=== PATIENT | male | born 1960 | race Caucasian/White ===

== ENCOUNTER 2020-09-13 16:28 | Emergency (ER) | payer OTHER, MEDICARE ==
[~2020-09-13] VITALS: Ht 188 cm; Wt 77.3 kg
[2020-09-13 16:45] VITALS: BP 136/86
[2020-09-13] MEDS ORDERED: ketorolac trometh. 30mg/ml inj. IM ONE (17:20)
== END 2020-09-13 17:43 | disposition home or self-care (01) ==
LOC: ER 16:29
DX: M79.674 Pain in right toe(s) (principal); R00.0 Tachycardia, unspecified; F17.200 Nicotine dependence, unspecified, uncomplicated; Z86.73 Personal history of transient ischemic attack (TIA), and cerebral infarction without residual deficits; Z59.0 Homelessness
CPT/HCPCS: 96372; 99283; J1885

== ENCOUNTER 2020-09-22 05:13 | Emergency (ER) | payer OTHER, MEDICARE ==
[~2020-09-22] VITALS: Ht 188 cm; Wt 79.5 kg
[2020-09-22] MEDS ORDERED: acetaminophen 325mg tablet PO ONE (05:40)
[2020-09-22 05:52] VITALS: BP 156/98
== END 2020-09-22 05:56 | disposition home or self-care (01) ==
LOC: ER 05:13
DX: M79.671 Pain in right foot (principal); M21.961 Unspecified acquired deformity of right lower leg; Z86.73 Personal history of transient ischemic attack (TIA), and cerebral infarction without residual deficits; Z59.0 Homelessness
CPT/HCPCS: 99284

== ENCOUNTER 2022-07-29 16:45 | Emergency (ER) | payer SELFPAY ==
[~2022-07-29] VITALS: Ht 188 cm; Wt 77.3 kg
[2022-07-29 17:07] VITALS: BP 154/110
[2022-07-29] MEDS ORDERED: cephalexin 500mg capsule PO ONE (18:00)
[2022-07-29] MEDS ORDERED: CEPH500C2 PO (18:06)
== END 2022-07-29 18:15 | disposition home or self-care (01) ==
LOC: ER 16:46
DX: L03.011 Cellulitis of right finger (principal); F17.200 Nicotine dependence, unspecified, uncomplicated; I11.9 Hypertensive heart disease without heart failure; Z56.0 Unemployment, unspecified; Z79.2 Long term (current) use of antibiotics
CPT/HCPCS: 73140; 99283

== ENCOUNTER 2022-09-15 15:20 | Emergency (ER) | payer SELFPAY ==
[~2022-09-15] VITALS: Ht 188 cm; Wt 79.3 kg
--- NOTE | 2022-09-15 16:33 | NUR ---
FIRST CONTACT. PT AO4. RESP EVEN UNLABORED. RT HAND INDEX FINGERS SHOWS STIFFNESS AND DISCOLORATION. PER PT SMASHED IT 5 WEEKS AGO. PT IS UNABLE TO MAKE FIST. NUMBNESS REPORTED AT TIP OF DIGIT. PT ALSO STATED LEFT LOWER BACK DISCOMFORT. STATED HE TORE IT UNKNOWN ONSET. SKIN W/D/I PINK.
[2022-09-15] MEDS ORDERED: ketorolac trometh. 30mg/ml inj. IM ONE (16:40)
[2022-09-15] MEDS ORDERED: CEPH-585 PO (16:41)
[2022-09-15 17:07] VITALS: BP 133/97
== END 2022-09-15 17:10 | disposition home or self-care (01) ==
LOC: ER 15:20
DX: L98.499 Non-pressure chronic ulcer of skin of other sites with unspecified severity (principal); Z59.00 Homelessness unspecified
CPT/HCPCS: 73130; 96372; 99283; J1885

== ENCOUNTER 2022-11-08 15:28 | Emergency (ER) | payer MEDICARE, MEDICAID ==
[~2022-11-08] VITALS: Ht 188 cm; Wt 0.8 kg
[~2022-11-08 15:28] MED LIST: METO-395 PO; NO HOME MEDS
[2022-11-08 15:44] VITALS: BP 173/110
--- NOTE | 2022-11-08 16:06 | NUR ---
I have reviewed and agree with all interventions, assessments performed and documented by DU Soares.
[2022-11-08] MEDS ORDERED: apixaban 5mg tablet PO STA (16:32)
[2022-11-08] MEDS ORDERED: HYDROcodone/acetaminophen 5mg/325mg tablet PO ONE (16:35)
[2022-11-08] MEDS ORDERED: HYDR-3965 PO ×2 (16:35)
--- NOTE | 2022-11-08 18:05 | NUR ---
TELEPHONE CALL TO PATIENT AT THIS TIME PER DR MATIAS AND VARUN SILVER FOR PATIENT TO COME BACK TO ED TOMORROW MORNING FOR REVASCULARIZATION OF HAND. PATIENT VERBALIZED UNDERSTANDING OF NPO AFTER MIDNIGHT AND TO COME IN TOMORROW MORNING.
[2022-11-09] MEDS ORDERED: NYQUIL PO (15:00)
[2022-11-09] MEDS ORDERED: HYDR-3964 PO (15:00)
== END 2022-11-08 17:05 | disposition home or self-care (01) ==
LOC: ER 15:28
DX: M62.241 Nontraumatic ischemic infarction of muscle, right hand (principal); F15.20 Other stimulant dependence, uncomplicated; Z59.00 Homelessness unspecified
CPT/HCPCS: 99283

== ENCOUNTER 2022-11-09 11:17 | Inpatient (IN) | payer MEDICARE, MEDICAID ==
[~2022-11-09] VITALS: Ht 188 cm; Wt 79.5 kg
[2022-11-09] VITALS (13 sets, daily range): BP systolic 144–165; BP diastolic 91–101
[~2022-11-09 11:17] MED LIST changes: +HYDR-3965 PO
[2022-11-09] MEDS ORDERED: ondansetron/PF 4mg/2ml inj IV PRN ×2 (12:10→17:15)
[2022-11-09] MEDS ORDERED: acetaminophen 325mg tablet PO PRN ×4 (12:10→17:15)
[2022-11-09] MEDS ORDERED: morphine 2 MG/ML inj. syringe IV PRN (12:10)
[2022-11-09] MEDS ORDERED: magnesium hydroxide 30ml (MOM) UD suspension PO PRN ×2 (12:10→17:15)
[2022-11-09] MEDS ORDERED: HYDROcodone/acetaminophen 5mg/325mg tablet PO PRN (12:10)
[2022-11-09] MEDS ORDERED: mag hydrox/Alum hydrox/simeth 30ml oral suspension PO PRN (12:10)
[2022-11-09 12:52] LABS: BASOPHILS # (AUTO) 0.1 X10'3 (0-0.2); BASOPHILS % (AUTO) 1.1 % (0-1); EOSINOPHILS # (AUTO) 0.2 X10'3 (0-0.9); EOSINOPHILS % (AUTO) 2.5 % (0-6); HEMATOCRIT 40.2 % (42.0-52.0); HEMOGLOBIN 13.1 g/dl (14.0-17.9); LYMPHOCYTES # (AUTO) 1.4 X10'3 (1.1-4.8); LYMPHOCYTES % (AUTO) 18.1 % (21-51); MEAN CORPUSCULAR HEMOGLOBIN 30.1 PG (27.0-31.0); MEAN CORPUSCULAR HGB CONC 32.7 g/dL (33.0-36.5); MEAN CORPUSCULAR VOLUME 91.9 FL (78-98); MEAN PLATELET VOLUME 7.9 FL (7.4-10.4); MONOCYTES # (AUTO) 0.6 X10'3 (0-0.9); MONOCYTES % (AUTO) 7.8 % (2-12); NEUTROPHILS # (AUTO) 5.3 X10'3 (1.8-7.7); NEUTROPHILS % (AUTO) 70.5 % (42-75); PLATELET COUNT 290 X10'3 (140-440); RED BLOOD COUNT 4.37 X10'6 (4.70-6.10); RED CELL DISTRIBUTION WIDTH 14.7 % (11.5-14.5); WHITE BLOOD COUNT 7.5 X10'3 (4.5-11.0)
[2022-11-09 12:55] LABS: ALANINE AMINOTRANSFERASE 21 U/L (12-78); ALBUMIN 3.6 G/DL (3.4-5.0); ALKALINE PHOSPHATASE 83 IU/L (46-116); ANION GAP 6 (8-16); ASPARTATE AMINO TRANSFERASE 14 U/L (10-37); BILIRUBIN,TOTAL 0.4 MG/DL (0.1-1.0); BLOOD UREA NITROGEN 24 MG/DL (7-18); BUN/CREATININE RATIO 27.9 (5.4-32.0); CALCIUM 9.1 MG/DL (8.5-10.1); CHLORIDE 105 MMOL/L (99-107); CREATININE 0.86 MG/DL (0.60-1.10); GLUCOSE 100 MG/DL (70-104); POTASSIUM 4.1 MMOL/L (3.5-5.1); SODIUM 139 MMOL/L (135-145); TOTAL PROTEIN 7.2 G/DL (6.4-8.2); eGFR 90 ML/MIN
[2022-11-09] MEDS: morphine 2 MG/ML inj. syringe IV PRN ×3 (14:03→22:35)
--- NOTE | 2022-11-09 14:06 | NUR ---
Dr. Barros at bedside.
[2022-11-09] MEDS ORDERED: HYDR-3964 PO (15:00)
[2022-11-09] MEDS ORDERED: NYQUIL PO (15:00)
[2022-11-09] MEDS ORDERED: LIDOcaine 1% (10mg/ml) 2ml vial ONE (15:14)
--- NOTE | 2022-11-09 15:25 | NUR ---
pT ARRIVED FROM ed VIA [facility]
[2022-11-09] MEDS ORDERED: POTASSIUM BICARB 20meq eff tab 20 MEQ TABLET.EFF PO PRN ×2 (17:15)
[2022-11-09] MEDS: HYDROcodone/acetaminophen 10/325mg tab PO PRN ×2 (17:31→19:52)
[2022-11-09] MEDS ORDERED: LIDOcaine 2% 10ml TOPICAL JELLY (Urojet) TP ONE (18:02)
--- NOTE | 2022-11-09 18:26 | NUR ---
Problems reprioritized. Patient report given, questions answered & plan of care reviewed with LZIZIE Cash.
[2022-11-09] MEDS: tPA-cathflo 2mg/2ml IV flush 4 MG in normal saline 100ml IV soln 100 ML ICATH SCH ×2 (19:36→23:11)
[2022-11-09] MEDS: docusate sod 100mg capsule PO SCH (20:10)
[2022-11-09] MEDS: morphine 4 MG/ML inj SYRINge IV PRN (20:49)
[2022-11-10] VITALS (29 sets, daily range): BP systolic 116–165; BP diastolic 69–106
[2022-11-10] MEDS ORDERED: heparin 10,000 units/1 ML INJ IV ONE (01:15)
[2022-11-10] MEDS ORDERED: heparin 10,000 units/1 ML INJ IV PRN (01:15)
[2022-11-10] MEDS: morphine 4 MG/ML inj SYRINge IV PRN ×3 (01:28→18:52)
[2022-11-10] MEDS: heparin 25,000 UNIT/250ml bag 250 ML IV PRN ×2 (02:29→21:27)
[2022-11-10] MEDS: morphine 2 MG/ML inj. syringe IV PRN ×2 (03:47→23:37)
[2022-11-10 06:02] LABS: BASOPHILS # (AUTO) 0.1 X10'3 (0-0.2); BASOPHILS % (AUTO) 1.2 % (0-1); EOSINOPHILS # (AUTO) 0.2 X10'3 (0-0.9); EOSINOPHILS % (AUTO) 3.3 % (0-6); HEMATOCRIT 38.6 % (42.0-52.0); HEMOGLOBIN 12.9 g/dl (14.0-17.9); LYMPHOCYTES # (AUTO) 1.9 X10'3 (1.1-4.8); LYMPHOCYTES % (AUTO) 26.9 % (21-51); MEAN CORPUSCULAR HEMOGLOBIN 30.7 PG (27.0-31.0); MEAN CORPUSCULAR HGB CONC 33.5 g/dL (33.0-36.5); MEAN CORPUSCULAR VOLUME 91.7 FL (78-98); MEAN PLATELET VOLUME 8.3 FL (7.4-10.4); MONOCYTES # (AUTO) 0.6 X10'3 (0-0.9); MONOCYTES % (AUTO) 8.5 % (2-12); NEUTROPHILS # (AUTO) 4.3 X10'3 (1.8-7.7); NEUTROPHILS % (AUTO) 60.1 % (42-75); PLATELET COUNT 290 X10'3 (140-440); RED BLOOD COUNT 4.21 X10'6 (4.70-6.10); RED CELL DISTRIBUTION WIDTH 14.5 % (11.5-14.5); WHITE BLOOD COUNT 7.2 X10'3 (4.5-11.0)
[2022-11-10 06:07] LABS: ALBUMIN 3.4 G/DL (3.4-5.0); ANION GAP 5 (8-16); BLOOD UREA NITROGEN 22 MG/DL (7-18); BUN/CREATININE RATIO 26.2 (5.4-32.0); CALCIUM 8.9 MG/DL (8.5-10.1); CHLORIDE 102 MMOL/L (99-107); CREATININE 0.84 MG/DL (0.60-1.10); GLUCOSE 100 MG/DL (70-104); MAGNESIUM 2.1 MG/DL (1.5-2.4); POTASSIUM 4.1 MMOL/L (3.5-5.1); SODIUM 136 MMOL/L (135-145); TOTAL CARBON DIOXIDE 28.9 MMOL/L (24-32); eGFR > 90 ML/MIN
[2022-11-10] MEDS: tPA-cathflo 2mg/2ml IV flush 4 MG in normal saline 100ml IV soln 100 ML ICATH SCH ×2 (07:18→17:09)
--- NOTE | 2022-11-10 07:30 | NUR ---
RN spoke to IR on the phone. Informed RN that pt does have r radial pulse now. IR RN wanted to know why TPA and heparin were both running. No notes regarding an answer for her question.
[2022-11-10] MEDS: docusate sod 100mg capsule PO SCH ×2 (08:00→20:00)
[2022-11-10] MEDS: K and/or MAG REPLACEMENT MC SCH (08:00)
[2022-11-10] MEDS: HYDROcodone/acetaminophen 10/325mg tab PO PRN (08:31)
--- NOTE | 2022-11-10 11:30 | NUR ---
RN made aware of critical aptt result. APTT result drawn too early based on rate change and heparin bolus given. APTT for titration not due until 1500. RN spoke to computed tomography technician. auger operator agreed that no changes should be made to he heparin gtt and changes should be based off of the 1500 APTT. No heparin change completed.
[2022-11-10] MEDS: pantoprazole 40MG/NS 100ML BAG 100 ML IV SCH (11:51)
--- NOTE | 2022-11-10 12:35 | NUR ---
IR team to bedside in room 3011B. Papo JACKMAN obtained US imaging of right wrist/forearm. MD requesting to continue tPA drip. Primary RN aware.
[2022-11-10] MEDS ORDERED: heparin 1,000 UNITS/NS 500ml 500 ML ONE (14:19)
[2022-11-10] MEDS ORDERED: LIDOcaine 1% (10mg/ml) 2ml vial ONE (14:19)
[2022-11-10] MEDS ORDERED: fentaNYL/PF 50MCG/1 ML 2ML syringe ONE (14:19)
[2022-11-10] MEDS ORDERED: iohexol 300mg/ml 100ml inj. ONE (14:19)
[2022-11-10] MEDS ORDERED: heparin 1,000unit/ml 10ml vial 10 ML ONE (15:17)
[2022-11-10] MEDS ORDERED: nitroGLYCERIN-Tridil 50MG/D5W 250 ML IV ONE (15:26)
--- NOTE | 2022-11-10 17:46 | NUR ---
Patient off unit from [id number]
[2022-11-11] VITALS (21 sets, daily range): BP systolic 106–155; BP diastolic 62–100
[2022-11-11] MEDS: morphine 4 MG/ML inj SYRINge IV PRN ×6 (01:51→23:42)
[2022-11-11] MEDS: tPA-cathflo 2mg/2ml IV flush 4 MG in normal saline 100ml IV soln 100 ML ICATH SCH (02:31)
[2022-11-11 06:57] LABS: BASOPHILS # (AUTO) 0.1 X10'3 (0-0.2); BASOPHILS % (AUTO) 1.1 % (0-1); EOSINOPHILS # (AUTO) 0.2 X10'3 (0-0.9); EOSINOPHILS % (AUTO) 3.3 % (0-6); HEMATOCRIT 37.8 % (42.0-52.0); HEMOGLOBIN 12.5 g/dl (14.0-17.9); LYMPHOCYTES # (AUTO) 1.8 X10'3 (1.1-4.8); MEAN CORPUSCULAR HEMOGLOBIN 30.4 PG (27.0-31.0); MEAN CORPUSCULAR HGB CONC 33.1 g/dL (33.0-36.5); MEAN CORPUSCULAR VOLUME 91.7 FL (78-98); MEAN PLATELET VOLUME 7.8 FL (7.4-10.4); MONOCYTES # (AUTO) 0.7 X10'3 (0-0.9); MONOCYTES % (AUTO) 9.4 % (2-12); NEUTROPHILS # (AUTO) 4.4 X10'3 (1.8-7.7); NEUTROPHILS % (AUTO) 61.2 % (42-75); PLATELET COUNT 276 X10'3 (140-440); RED BLOOD COUNT 4.12 X10'6 (4.70-6.10); RED CELL DISTRIBUTION WIDTH 14.5 % (11.5-14.5); WHITE BLOOD COUNT 7.1 X10'3 (4.5-11.0)
[2022-11-11 07:12] LABS: ALBUMIN 3.3 G/DL (3.4-5.0); ANION GAP 5 (8-16); BLOOD UREA NITROGEN 19 MG/DL (7-18); BUN/CREATININE RATIO 20.2 (5.4-32.0); CALCIUM 8.1 MG/DL (8.5-10.1); CHLORIDE 101 MMOL/L (99-107); CREATININE 0.94 MG/DL (0.60-1.10); GLUCOSE 103 MG/DL (70-104); POTASSIUM 4.1 MMOL/L (3.5-5.1); SODIUM 135 MMOL/L (135-145); TOTAL CARBON DIOXIDE 29.5 MMOL/L (24-32); eGFR 81 ML/MIN
[2022-11-11] MEDS: docusate sod 100mg capsule PO SCH ×2 (07:54→19:08)
[2022-11-11] MEDS: pantoprazole 40MG/NS 100ML BAG 100 ML IV SCH (07:54)
[2022-11-11] MEDS: K and/or MAG REPLACEMENT MC SCH (08:00)
[2022-11-11] MEDS: HYDROcodone/acetaminophen 10/325mg tab PO PRN ×3 (08:07→21:40)
--- NOTE | 2022-11-11 09:38 | NUR ---
Pt left w/ IR team
[2022-11-11] MEDS: heparin, porcine 5000 units/ml vial SQ SCH ×2 (15:05→23:43)
--- NOTE | 2022-11-11 17:12 | NUR ---
Report called to Med surg nurse.
--- NOTE | 2022-11-11 17:35 | NUR ---
pt transferred to 4017 w belongings. Call light within reach. Nurse aid at bedside to obtain pt vitals.
--- NOTE | 2022-11-11 18:15 | NUR ---
Patient in room ORTHO 4017. I have received report from Ella and had the opportunity to ask questions and assume patient care.
--- NOTE | 2022-11-11 19:40 | NUR ---
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 He is able to lift both right/left legs off bed and the arms too. Addendum: 11/11/22 at 2210 by Laly Juan RN Amended: Links added.
[2022-11-12] MEDS: HYDROcodone/acetaminophen 10/325mg tab PO PRN ×2 (01:17→07:33)
[2022-11-12] MEDS: morphine 4 MG/ML inj SYRINge IV PRN ×3 (04:07→11:04)
--- NOTE | 2022-11-12 05:19 | NUR ---
Patient refused to have his blood drawn for the labs.
[2022-11-12 06:00] VITALS: BP 145/99
--- NOTE | 2022-11-12 06:22 | NUR ---
Problems reprioritized. Patient report given, questions answered & plan of care reviewed with Ella.
[2022-11-12] MEDS: docusate sod 100mg capsule PO SCH (07:30)
[2022-11-12] MEDS: heparin, porcine 5000 units/ml vial SQ SCH (07:30)
[2022-11-12] MEDS: K and/or MAG REPLACEMENT MC SCH (08:00)
[2022-11-12] MEDS ORDERED: APIX5TAB3 PO ×2 (09:38)
[2022-11-12] MEDS ORDERED: HYDR-3972 PO ×2 (09:38)
[2022-11-12] MEDS ORDERED: apixaban 5mg tablet PO ONE (09:40)
[2022-11-12 09:59] VITALS: BP 108/64
--- NOTE | 2022-11-12 11:58 | NUR ---
PT DISCHARGED IN STABLE CONDITION. IVS REMOVED TIPS INTACT, NO COMPLICATION. PT EDUCATED ON DISCHARGE FOLLOW UP WITH DR MCCRAY. BELONGINGS SENT WITH PT INCLUDING HOME MEDS
[2022-11-13] MEDS ORDERED: pantoprazole 40mg Tablet.DR PO SCH (07:30)
[2022-11-17] MEDS ORDERED: HYDR-3972 PO (17:48)
[2022-11-17] MEDS ORDERED: APIX5TAB3 PO (17:48)
[2022-11-18] MEDS ORDERED: OXYC-150 PO (10:00)
== END 2022-11-12 11:45 | disposition home or self-care (01) | DRG 300 ==
LOC: ER 11:17 → ED HOLD 12:11 → CICU 2S 15:05 → ORTHO 4S 11-11 17:22
PROVIDERS: ADMIT Internal Medicine; ATTEND Internal Medicine
PROC: B31H1ZZ Fluoroscopy of Right Upper Extremity Arteries using Low Osmolar Contrast (ICD-10-PCS; principal; 2022-11-10)
PROC: 3E03317 Introduction of Other Thrombolytic into Peripheral Vein, Percutaneous Approach (ICD-10-PCS; 2022-11-10)
PROC: B31H1ZZ Fluoroscopy of Right Upper Extremity Arteries using Low Osmolar Contrast (ICD-10-PCS; 2022-11-10)
PROC: B31H1ZZ Fluoroscopy of Right Upper Extremity Arteries using Low Osmolar Contrast (ICD-10-PCS; 2022-11-11)
DX: I74.2 Embolism and thrombosis of arteries of the upper extremities (principal); I69.354 Hemiplegia and hemiparesis following cerebral infarction affecting left non-dominant side; I96 Gangrene, not elsewhere classified; I70.298 Other atherosclerosis of native arteries of extremities, other extremity; M79.601 Pain in right arm; R23.0 Cyanosis; F15.10 Other stimulant abuse, uncomplicated; F17.210 Nicotine dependence, cigarettes, uncomplicated; Z59.00 Homelessness unspecified; Z79.01 Long term (current) use of anticoagulants; Z79.899 Other long term (current) drug therapy
CPT/HCPCS: 36140; 36415; 37211; 37213; 37214; 71045; 75710; 76937; 80048; 80053; 83735; 83880; 84145; 85025; 85384; 85610; 85730; 87081; 93005; 97110; 97161; 97530; 99285; A4620; A6213; A6258; A6449; C1751; C1769; C1894; C9113; G0378; J1644; J2270; J2405; J2997; J3010; J3490; Q9967

== ENCOUNTER 2022-12-07 12:09 | Emergency (ER) | payer MEDICAID, MEDICARE ==
[~2022-12-07] VITALS: Ht 188 cm; Wt 79.5 kg
[~2022-12-07 12:09] MED LIST changes: +APIX5TAB3 PO; -HYDR-3965 PO; -METO-395 PO; -NO HOME MEDS; +OXYC-150 PO
[2022-12-07 12:42] VITALS: BP 145/94
[2022-12-07] MEDS ORDERED: HYDROcodone/acetaminophen 5mg/325mg tablet PO ONE (14:10)
--- NOTE | 2022-12-07 14:57 | NUR ---
PT WAS SEEN, TREATED AND DC'D BY PROVIDER PRIOR TO [facility] [employer]
== END 2022-12-07 14:58 | disposition home or self-care (01) ==
LOC: ER 12:10
DX: I96 Gangrene, not elsewhere classified (principal); I70.90 Unspecified atherosclerosis; Z86.73 Personal history of transient ischemic attack (TIA), and cerebral infarction without residual deficits; Z79.01 Long term (current) use of anticoagulants; Z79.899 Other long term (current) drug therapy
CPT/HCPCS: 99283

== ENCOUNTER 2022-12-22 15:54 | Emergency (ER) | payer OTHER, MEDICAID ==
[~2022-12-22] VITALS: Ht 188 cm; Wt 79.5 kg
[2022-12-22] MEDS ORDERED: naloxone 0.4 mg/ml inj ONE (16:00)
[2022-12-22] MEDS ORDERED: normal saline 1000ML IV soln IVB ONE (16:05)
[2022-12-22] MEDS ORDERED: ondansetron/PF 4mg/2ml inj IV ONE (16:05)
[2022-12-22] MEDS ORDERED: naloxone 0.4 mg/ml inj IV ONE (16:05)
[2022-12-22 16:30] LABS: BASOPHILS % (AUTO) 0.3 % (0-1); EOSINOPHILS # (AUTO) 0.1 X10'3 (0-0.9); HEMATOCRIT 37.8 % (42.0-52.0); HEMOGLOBIN 12.6 g/dl (14.0-17.9); LYMPHOCYTES # (AUTO) 2.1 X10'3 (1.1-4.8); LYMPHOCYTES % (AUTO) 20.4 % (21-51); MEAN CORPUSCULAR HEMOGLOBIN 30.6 PG (27.0-31.0); MEAN CORPUSCULAR HGB CONC 33.5 g/dL (33.0-36.5); MEAN CORPUSCULAR VOLUME 91.4 FL (78-98); MEAN PLATELET VOLUME 7.6 FL (7.4-10.4); MONOCYTES # (AUTO) 0.9 X10'3 (0-0.9); MONOCYTES % (AUTO) 8.6 % (2-12); NEUTROPHILS # (AUTO) 7.2 X10'3 (1.8-7.7); NEUTROPHILS % (AUTO) 69.7 % (42-75); PLATELET COUNT 336 X10'3 (140-440); RED BLOOD COUNT 4.13 X10'6 (4.70-6.10); RED CELL DISTRIBUTION WIDTH 14.9 % (11.5-14.5); WHITE BLOOD COUNT 10.4 X10'3 (4.5-11.0)
[2022-12-22 16:42] LABS: ALANINE AMINOTRANSFERASE 11 U/L (12-78); ALBUMIN 3.3 G/DL (3.4-5.0); ALBUMIN/GLOBULIN RATIO 0.8 (1.1-1.5); ALKALINE PHOSPHATASE 96 IU/L (46-116); ANION GAP 10 (8-16); ASPARTATE AMINO TRANSFERASE 12 U/L (10-37); BILIRUBIN,TOTAL 0.2 MG/DL (0.1-1.0); BLOOD UREA NITROGEN 15 MG/DL (7-18); BUN/CREATININE RATIO 13.5 (5.4-32.0); CHLORIDE 100 MMOL/L (99-107); CREATININE 1.11 MG/DL (0.60-1.10); GLUCOSE 229 MG/DL (70-104); SODIUM 135 MMOL/L (135-145); TOTAL CARBON DIOXIDE 25.4 MMOL/L (24-32); TOTAL PROTEIN 7.4 G/DL (6.4-8.2); eGFR 67 ML/MIN
[2022-12-22] MEDS ORDERED: NALO4SPR BOTHNARES (17:56)
[2022-12-22 18:12] VITALS: BP 125/91
== END 2022-12-22 18:04 | disposition left against medical advice (07) ==
LOC: ER 15:55
DX: T40.411A Poisoning by fentanyl or fentanyl analogs, accidental (unintentional), initial encounter (principal); R11.10 Vomiting, unspecified; Y92.89 Other specified places as the place of occurrence of the external cause
CPT/HCPCS: 36415; 80053; 85025; 93005; 96361; 96374; 99291; J2310; J2405; J7030; 99283; 99284

== ENCOUNTER 2022-12-27 14:20 | Emergency (ER) | payer OTHER, MEDICAID ==
[~2022-12-27] VITALS: Ht 190.5 cm; Wt 79.5 kg
[~2022-12-27 14:20] MED LIST changes: +NALO4SPR BOTHNARES
[2022-12-27 14:34] VITALS: BP 158/103
[2022-12-27] MEDS ORDERED: acetaminophen 325mg tablet PO ONE (15:10)
== END 2022-12-27 17:11 | disposition home or self-care (01) ==
LOC: ER 14:20
DX: I99.8 Other disorder of circulatory system (principal); F15.20 Other stimulant dependence, uncomplicated; Z59.00 Homelessness unspecified
CPT/HCPCS: 71045; 73130; 99284

== ENCOUNTER 2023-12-14 22:52 | Emergency (ER) | payer OTHER, MEDICARE ==
[~2023-12-14] VITALS: Ht 188 cm; Wt 68.0 kg
[2023-12-14 22:57] VITALS: TEMP 98.2
[2023-12-14] MEDS: dexamethasone sod phosphate 10mg/ml inj IV STA (23:20)
[2023-12-14 23:22] LABS: BASOPHILS # (AUTO) 0.1 X10'3 (0-0.2); BASOPHILS % (AUTO) 0.5 % (0-1); EOSINOPHILS # (AUTO) 0.2 X10'3 (0-0.9); EOSINOPHILS % (AUTO) 1.9 % (0-6); HEMATOCRIT 33.3 % (42.0-52.0); LYMPHOCYTES # (AUTO) 1.6 X10'3 (1.1-4.8); LYMPHOCYTES % (AUTO) 14.2 % (21-51); MEAN CORPUSCULAR HEMOGLOBIN 28.6 PG (27.0-31.0); MEAN CORPUSCULAR HGB CONC 33.1 g/dL (33.0-36.5); MEAN CORPUSCULAR VOLUME 86.3 FL (78-98); MEAN PLATELET VOLUME 7.4 FL (7.4-10.4); MONOCYTES % (AUTO) 8.5 % (2-12); NEUTROPHILS # (AUTO) 8.5 X10'3 (1.8-7.7); NEUTROPHILS % (AUTO) 74.9 % (42-75); PLATELET COUNT 250 X10'3 (140-440); RED BLOOD COUNT 3.86 X10'6 (4.70-6.10); WHITE BLOOD COUNT 11.4 X10'3 (4.5-11.0)
[2023-12-14 23:33] LABS: PROTHROMBIN TIME 10.9 SECONDS (9.0-12.0)
[2023-12-14 23:42] LABS: ALBUMIN 3.2 G/DL (3.4-5.0); ANION GAP 6 (8-16); BLOOD UREA NITROGEN 26 MG/DL (7-18); BUN/CREATININE RATIO 25.5 (10.0-20.0); CALCIUM 8.6 MG/DL (8.5-10.1); CHLORIDE 110 MMOL/L (99-107); CREATININE 1.02 MG/DL (0.60-1.10); GLUCOSE 106 MG/DL (70-104); MAGNESIUM 1.8 MG/DL (1.5-2.4); POTASSIUM 4.2 MMOL/L (3.5-5.1); PRO BRAIN NATRIURETIC PEPTIDE 154 PG/ML (0-125); SODIUM 147 MMOL/L (135-145); TOTAL CARBON DIOXIDE 30.7 MMOL/L (24-32); eCRCL 70 ML/MIN; eGFR 74 ML/MIN
[2023-12-15] MEDS ORDERED: iohexol 300mg/ml 100ml inj. ONE (00:26)
[2023-12-15] MEDS: normal saline 1000ml 1,000 ML IV ONE (00:36)
[2023-12-15 08:59] VITALS: BP 130/85; PULSE 74; RESP 16; O2SAT 98
== END 2023-12-15 09:00 | disposition left against medical advice (07) ==
LOC: ER 22:53
DX: R22.1 Localized swelling, mass and lump, neck (principal); F15.10 Other stimulant abuse, uncomplicated; Z79.899 Other long term (current) drug therapy
CPT/HCPCS: 36415; 70491; 71045; 71260; 80048; 83735; 83880; 84145; 85025; 85610; 93005; 96374; 99285; J1100; J3490; J7030; Q9967

== ENCOUNTER 2024-05-01 11:25 | Emergency (ER) | payer OTHER, MEDICARE, MEDICAID ==
[~2024-05-01] VITALS: Ht 188 cm; Wt 64.0 kg
[~2024-05-01 11:25] MED LIST changes: -APIX5TAB3 PO; -NALO4SPR BOTHNARES; +NO HOME MEDS; -OXYC-150 PO
[2024-05-01 13:47] LABS: BASOPHILS % (AUTO) 0.2 % (0-1); EOSINOPHILS # (AUTO) 0.2 X10'3 (0-0.9); EOSINOPHILS % (AUTO) 1.7 % (0-6); HEMATOCRIT 32.4 % (42.0-52.0); HEMOGLOBIN 10.2 g/dl (14.0-17.9); LYMPHOCYTES # (AUTO) 1.1 X10'3 (1.1-4.8); LYMPHOCYTES % (AUTO) 10.3 % (21-51); MEAN CORPUSCULAR HEMOGLOBIN 27.3 PG (27.0-31.0); MEAN CORPUSCULAR HGB CONC 31.4 g/dL (33.0-36.5); MEAN CORPUSCULAR VOLUME 86.9 FL (78-98); MEAN PLATELET VOLUME 8.1 FL (7.4-10.4); MONOCYTES # (AUTO) 0.7 X10'3 (0-0.9); MONOCYTES % (AUTO) 6.6 % (2-12); NEUTROPHILS % (AUTO) 81.2 % (42-75); PLATELET COUNT 347 X10'3 (140-440); RED BLOOD COUNT 3.73 X10'6 (4.70-6.10); RED CELL DISTRIBUTION WIDTH 16.9 % (11.5-14.5); WHITE BLOOD COUNT 11.1 X10'3 (4.5-11.0)
[2024-05-01 13:58] LABS: ALBUMIN 2.5 G/DL (3.4-5.0); ANION GAP 6 (8-16); BLOOD UREA NITROGEN 21 MG/DL (7-18); BUN/CREATININE RATIO 24.7 (10.0-20.0); CALCIUM 8.6 MG/DL (8.5-10.1); CHLORIDE 103 MMOL/L (99-107); CREATININE 0.85 MG/DL (0.60-1.10); GLUCOSE 134 MG/DL (70-104); POTASSIUM 3.7 MMOL/L (3.5-5.1); SODIUM 136 MMOL/L (135-145); TOTAL CARBON DIOXIDE 27.3 MMOL/L (24-32); eCRCL 79 ML/MIN; eGFR > 90 ML/MIN
[2024-05-01] MEDS ORDERED: LIDOcaine 2% Viscous 15ml cup MM SCH (15:00)
[2024-05-01] MEDS: LIDOcaine 2% Viscous 15ml cup MM ONE (15:25)
[2024-05-01 16:05] VITALS: BP 108/74; PULSE 84; RESP 16; TEMP 98.5; O2SAT 96
== END 2024-05-01 16:07 | disposition home or self-care (01) ==
LOC: ER 11:26
DX: J02.9 Acute pharyngitis, unspecified (principal); R59.0 Localized enlarged lymph nodes; E86.0 Dehydration; R05.9 Cough, unspecified; I63.9 Cerebral infarction, unspecified; G45.9 Transient cerebral ischemic attack, unspecified; F15.90 Other stimulant use, unspecified, uncomplicated
CPT/HCPCS: 36415; 71045; 80048; 83605; 84145; 85025; 87040; 99284

== ENCOUNTER 2024-10-14 22:46 | Emergency (ER) | payer OTHER, MEDICARE, MEDICAID ==
[~2024-10-14] VITALS: Ht 188 cm; Wt 61.4 kg
[2024-10-14 23:17] LABS: BASOPHILS % (AUTO) 0.6 % (0-1); EOSINOPHILS % (AUTO) 0.6 % (0-6); HEMATOCRIT 29.4 % (42.0-52.0); LYMPHOCYTES # (AUTO) 0.9 X10'3 (1.1-4.8); LYMPHOCYTES % (AUTO) 11.2 % (21-51); MEAN CORPUSCULAR HEMOGLOBIN 30.4 PG (27.0-31.0); MEAN CORPUSCULAR VOLUME 89.5 FL (78-98); MEAN PLATELET VOLUME 6.7 FL (7.4-10.4); MONOCYTES # (AUTO) 0.5 X10'3 (0-0.9); MONOCYTES % (AUTO) 5.9 % (2-12); NEUTROPHILS # (AUTO) 6.6 X10'3 (1.8-7.7); NEUTROPHILS % (AUTO) 81.7 % (42-75); PLATELET COUNT 470 X10'3 (140-440); RED BLOOD COUNT 3.29 X10'6 (4.70-6.10); WHITE BLOOD COUNT 8.1 X10'3 (4.5-11.0)
[2024-10-14 23:40] LABS: ALBUMIN 3.2 G/DL (3.4-5.0); ANION GAP 2 (8-16); ANISOCYTOSIS 2+; BLOOD UREA NITROGEN 25 MG/DL (7-18); BUN/CREATININE RATIO 22.1 (10.0-20.0); CALCIUM 9.4 MG/DL (8.5-10.1); CHLORIDE 103 MMOL/L (99-107); CREATININE 1.13 MG/DL (0.60-1.10); GLUCOSE 107 MG/DL (70-104); PLATELET ESTIMATE INCREASED; POTASSIUM 3.9 MMOL/L (3.5-5.1); PRO BRAIN NATRIURETIC PEPTIDE 386 PG/ML (0-125); SODIUM 141 MMOL/L (135-145); TOTAL CARBON DIOXIDE 36.5 MMOL/L (24-32); eCRCL 57 ML/MIN; eGFR 65 ML/MIN
[2024-10-15 00:36] VITALS: O2SAT 95
[2024-10-15 01:41] VITALS: BP 133/85; PULSE 69; RESP 13; TEMP 97.8
== END 2024-10-15 02:03 | disposition home or self-care (01) ==
LOC: ER 22:48
DX: J95.00 Unspecified tracheostomy complication (principal); F17.210 Nicotine dependence, cigarettes, uncomplicated; F15.90 Other stimulant use, unspecified, uncomplicated; Z86.73 Personal history of transient ischemic attack (TIA), and cerebral infarction without residual deficits
CPT/HCPCS: 36415; 71046; 80048; 83605; 83880; 84145; 85008; 85025; 87040; 99284